=== PATIENT | female | born 1990 | race Two or more races ===

== ENCOUNTER 2020-07-23 11:15 | Emergency (ER) | payer OTHER ==
[2020-07-23 11:20] VITALS: BP 148/92; PULSE 80; TEMP 97.8; BMI 29.1
[2020-07-23] MEDS ORDERED: SODIUM CHLORIDE 1,000 ML IV STA (12:02)
[2020-07-23] MEDS ORDERED: ACETAMINOPHEN 1000 MG/100 ML VIAL (NON FORMULARY) IVPB ONE (12:02)
[2020-07-23] MEDS ORDERED: ACETAMINOPHEN INJECTION 100 ML IVPB ONE (12:03)
[2020-07-23 12:23] LABS: BASO % 1.2 % (0-2.0); EOS % 3.3 % (0-4.5); HEMATOCRIT 42.7 % (32.4-45.2); HEMOGLOBIN 14.1 GM/dL (10.7-15.3); LYMPH % 41.6 % (8-40); MCH 28.3 pg (25.7-33.7); MEAN CELL VOLUME 85.9 fl (80-96); MONO % 10.3 % (3.8-10.2); NEUT % 43.6 % (42.8-82.8); PLATELET COUNT 366 K/MM3 (134-434); RBC 4.97 M/mm3 (3.60-5.2); RDW 13.3 % (11.6-15.6)
[2020-07-23 12:27] LABS: PH,URINE 7.5 (5.0-8.0); URINE APPEARANCE CLEAR; URINE BILIRUBIN NEGATIVE (NEGATIVE); URINE COLOR YELLOW; URINE GLUCOSE (UA) NEGATIVE (NEGATIVE); URINE KETONE NEGATIVE (NEGATIVE); URINE LEUK ESTERASE NEGATIVE (NEGATIVE); URINE NITRITE NEGATIVE (NEGATIVE); URINE PROTEIN NEGATIVE (NEGATIVE)
[2020-07-23 12:47] LABS: CHLORIDE 106 mmol/L (98-107); POTASSIUM 4.9 mmol/L (3.5-5.1); SODIUM 137 mmol/L (136-145)
[2020-07-23 12:50] LABS: ALBUMIN 4.1 g/dl (3.4-5.0); CALCIUM 9.5 mg/dL (8.5-10.1); LIPASE 165 U/L (73-393)
[2020-07-23 12:51] LABS: ANION GAP 6 MMOL/L (8-16); CO2 25 mmol/L (21-32); GLUCOSE,RANDOM 84 mg/dL (74-106)
[2020-07-23 12:53] LABS: CREATININE 0.7 mg/dL (0.55-1.3); SGOT/AST 35 U/L (15-37); SGPT/ALT 19 U/L (13-61)
[2020-07-23 12:55] LABS: BILIRUBIN,TOTAL 1.2 mg/dL (0.2-1)
[2020-07-23 12:56] LABS: ALK PHOS 57 U/L (45-117)
[2020-07-23] MEDS ORDERED: KETOROLAC TROMETHAMINE 30 MG/1 ML VIAL IVPUSH ONE (13:11)
[2020-07-23] MEDS ORDERED: KETOROLAC TROMETHAMINE 30 MG/1 ML VIAL ONE (13:26)
== END 2020-07-23 14:08 | disposition home or self-care (01) ==
LOC: JER 11:15
PROC: 3E0333Z Introduction of Anti-inflammatory into Peripheral Vein, Percutaneous Approach (ICD-10-PCS; principal; 2020-07-23)
PROC: 3E0333Z Introduction of Anti-inflammatory into Peripheral Vein, Percutaneous Approach (ICD-10-PCS; 2020-07-23)
PROC: 3E0337Z Introduction of Electrolytic and Water Balance Substance into Peripheral Vein, Percutaneous Approach (ICD-10-PCS; 2020-07-23)
DX: R10.32 Left lower quadrant pain (principal); N91.2 Amenorrhea, unspecified; Z30.432 Encounter for removal of intrauterine contraceptive device
CPT/HCPCS: 36415; 76830-TC; 80053; 81003; 83690; 84702; 85025; 87086; 87491; 87591; 99285-25; J0131